=== PATIENT | male | born 1985 ===

== ENCOUNTER 2016-12-24 22:36 | Emergency (ER) | payer MEDICAID ==
[~2016-12-24] VITALS: Ht 175.3 cm; Wt 97.5 kg
[2016-12-24 22:45] VITALS: BP 96/30
--- NOTE | 2016-12-24 23:15 | Emergency Room Report ---
History of Present Illness General Chief Complaint: Vomiting Source: Patient, Family Member, EMS Present Illness HPI Is a 31-year-old male with no past medical history. He presents with chief complaint of feeling weak and vomiting after eating some animal marijuana. Vomiting is nonbloody nonbilious. No diarrhea. Never had this problem before. Denies any other complaint. No abdominal pain. Allergies: Coded Allergies: No Known Allergies (Unverified , 12/24/16) Patient History Past Medical History: see triage record, old chart reviewed Past Surgical History: other Pertinent Family History: none Social History: Denies: smoking Immunizations: other Reviewed Nursing Documentation: PMH: Agreed, PSxH: Agreed Review of Systems Constitutional: Reports: weakness Eye: Denies: blurred vision, eye pain ENT: Denies: ear pain, nose congestion, throat swelling Respiratory: Denies: cough, shortness of breath Cardiovascular: Denies: chest pain, palpitations Gastrointestinal: Reports: nausea, vomiting, Denies: abdominal pain, diarrhea Musculoskeletal: Denies: back pain, joint pain Skin: Denies: rash Neurological: Denies: headache, numbness Endocrine: Denies: increased thirst, increased urine Hematologic/Lymphatic: Denies: easy bruising All Other Systems: negative except mentioned in HPI Physical Exam Vital Signs Date Time Temp Pulse Resp B/P Pulse Ox O2 Delivery O2 Flow Rate FiO2 12/24/16 22:37 98.2 74 16 104/56 100 Room Air vitals normal Sp02 EP Interpretation: reviewed, normal General Appearance: well appearing, no apparent distress, alert, other - Sleepy Head: normocephalic, atraumatic Eyes: bilateral eye EOMI, bilateral eye PERRL ENT: hearing grossly normal, normal pharynx Neck: full range of motion, supple, no meningismus Respiratory: chest non-tender, lungs clear, normal breath sounds Cardiovascular #1: regular rate, rhythm, no murmur Gastrointestinal: normal bowel sounds, non tender, no mass, no organomegaly, no bruit, non-distended Musculoskeletal: back normal, gait/station normal, normal range of motion Psychiatric: mood/affect normal Skin: warm/dry Medical Decision Making Diagnostic Impression: Primary Impression: Vomiting Qualified Codes: R11.2 - Nausea with vomiting, unspecified Additional Impression: Adverse effect of cannabis ER Course patient with adverse effect from marijuana. No evidence of tension overdose. [place] better now. We'll discharge home. Last Vital Signs Date Time Temp Pulse Resp B/P Pulse Ox O2 Delivery O2 Flow Rate FiO2 12/24/16 22:45 98.2 95 18 96/30 96 Room Air Status: improved Disposition: HOME, SELF-CARE Condition: Stable Patient Instructions: Nausea and Vomiting, Adult Additional Instructions: Followup with your Dr. in 7 days. Return if worse. NANCY BROWN M.D. December 24, 2016 23:15
[2016-12-25 00:10] VITALS: BP 94/54
== END 2016-12-25 00:10 | disposition home or self-care (01) ==
LOC: EDBD 22:36 → EMR 23:35
DX: R11.2 Nausea with vomiting, unspecified (principal); R53.1 Weakness; T40.7X5A Adverse effect of cannabis (derivatives), initial encounter
CPT/HCPCS: 96360; 96374; 99284; J2405